=== PATIENT | male | born 1970 | race Two or more races ===

== ENCOUNTER 2021-06-05 14:00 | Outpatient (CLI) | payer BC ==
[2021-06-10] MEDS ORDERED: BUPIVACAINE 0.5 % PF 150 MG/30 ML VIAL ONE (09:03)
[2021-06-12] MEDS ORDERED: OXYC-128 PO (13:43)
== END 2021-06-05 23:59 | disposition home or self-care (01) ==
LOC: LAB 14:00
PROVIDERS: ATTEND Physician Assistant
DX: Z01.812 Encounter for preprocedural laboratory examination (principal); Z20.822 Contact with and (suspected) exposure to COVID-19
CPT/HCPCS: C9803; U0003

== ENCOUNTER 2021-06-10 05:30 | Inpatient (IN) | payer BC ==
[2021-06-10] VITALS (7 sets, daily range): BP systolic 106–128; BP diastolic 60–88
[~2021-06-10] VITALS: Ht 180.3 cm; Wt 109.3 kg
[2021-06-10] MEDS ORDERED: POLYMYXIN B SULFATE 500,000 UNITS ONE (06:39)
[2021-06-10] MEDS ORDERED: ANESTHESIA TRAY IN PYXIS 1 EA TRAY MC ONE (06:40)
[2021-06-10] MEDS ORDERED: BUPIVACAINE 0.5 % PF 150 MG/30 ML VIAL ONE (06:40)
--- NOTE | 2021-06-10 06:52 | NUR ---
RN ADMITTING NOTE PATIENT ADMITTED FOR DAY SURGERY. SX CHECKLIST AND CONSENTS SIGNED FOR RIGHT TOTAL KNEE ARTHROPLASTY. PATIENT IS ABLE TO MAKE NEEDS KNOWN, A/O X 4. AMBULATORY AND STEADY. INSERTED A LFA 20 G IV ACCESS SALINE LOCKED. BREATHING EVEN AND UNLABORED, TOLERATES RA AT 98%. ORIENTED PATIENT TO UNIT, RN, AND APPLICATION ANALYST. SAFETY MEASURES IN PLACE. WILL ENDORSE TO DAY SHIFT NURSE FOR ALEJANDRINA. PATIENT WAS TAKEN BY SX TEAM. PATIENT STABLE.
[2021-06-10] MEDS ORDERED: TRANEXAMIC ACID 3,000 MG in SODIUM CHLORIDE IRRIG SOLUTION 70 ML IR ONE (07:00)
[2021-06-10] MEDS ORDERED: HYDROMORPHONE INJ 2 MG/ML DISP.SYRIN ONE (07:19)
[2021-06-10] MEDS ORDERED: FENTANYL PF 250MCG/5ML AMPUL ONE ×2 (07:19)
[2021-06-10] MEDS ORDERED: MIDAZOLAM HCL 2 MG/2ML VIAL ONE (07:19)
[2021-06-10] MEDS ORDERED: ROCURONIUM BROMIDE 50 MG/5 ML ONE (07:20)
[2021-06-10] MEDS ORDERED: FAMOTIDINE/PF INJ 20 MG/2 ML VIAL IV ONE (07:20)
[2021-06-10] MEDS ORDERED: SEVOFLURANE 250 ML BOTTLE IH ONE (08:24)
[2021-06-10] MEDS ORDERED: COLACE 250 MG CAPSULE PO PRN (09:30)
[2021-06-10] MEDS ORDERED: SENOKOT 8.6 MG TABLET PO PRN (09:30)
[2021-06-10] MEDS ORDERED: ZOFRAN 4mg/2ML IV PRN (09:30)
[2021-06-10] MEDS ORDERED: DULCOLAX 10 MG/SUPP.RECT RC PRN (09:30)
[2021-06-10] MEDS ORDERED: AMBIEN 5 MG TABLET PO PRN (09:30)
[2021-06-10] MEDS ORDERED: TYLENOL 650 MG TABLET PO PRN (09:30)
[2021-06-10] MEDS ORDERED: ONDANSETRON HCL/PF 4 MG/2 ML VIAL IV PRN (10:00)
[2021-06-10] MEDS ORDERED: ALBUTEROL FS 2.5 MG/0.5 ML VIAL.NEB NEB PRN (10:00)
[2021-06-10] MEDS ORDERED: MAG HYDROX/AL HYDROX/SIMETH 30 ML UDC PO PRN (10:00)
[2021-06-10] MEDS ORDERED: CYCLOBENZAPRINE 10 MG TABLET PO PRN (10:00)
[2021-06-10] MEDS ORDERED: CLONIDINE HCL 0.1 MG TABLET PO PRN (10:00)
[2021-06-10] MEDS ORDERED: HYDROCODONE/APAP 5/325MG TABLET PO PRN (10:00)
[2021-06-10] MEDS ORDERED: MAGNESIUM HYDROXIDE 30 ML UDC PO PRN (10:00)
[2021-06-10] MEDS: NICOTINE PATCH (21MG) 21 MG PATCH.TD24 TD SCH ×2 (10:00→11:37)
[2021-06-10] MEDS ORDERED: MENTHOL/CETYLPYRD (CEPACOL) 1 LOZ LOZENGE PO PRN (10:00)
[2021-06-10] MEDS ORDERED: DRONABINOL (2.5 MG) 2.5 MG CAPSULE PO SCH (10:00)
[2021-06-10] MEDS ORDERED: diphenhydrAMINE HCL 25 MG CAPSULE PO PRN (10:00)
[2021-06-10] MEDS ORDERED: ONDANSETRON HCL/PF 4 MG/2 ML VIAL ONE (10:09)
--- NOTE | 2021-06-10 10:30 | NUR ---
Pateint has an order for Nicotine patch, patient prefers not to have it today, explained risks and benefits thrice, still refused.
--- NOTE | 2021-06-10 10:35 | NUR ---
Patient arrived from OR around 10:34am, S/P right total knee arthroplasty, stable condition, no apparent distress noted. Patient AO X 4, able to follow commands, can make needs known. RN and TICKET TAKER introduced to patient, oriented with use of call light, bed control, and tv control, verbalized understanding and gratitude. Patient denies any pain or discomfort at this time, safety precautions maintained, brakes locked, call light left within reach, will monitor closely for any changes.
[2021-06-10] MEDS: IV D5/0.45 NACL 1,000 ML IV PRN ×2 (11:33→21:27)
[2021-06-10] MEDS: DRONABINOL (2.5 MG) 2.5 MG CAPSULE PO SCH ×2 (11:36→21:19)
[2021-06-10] MEDS: ANCEF 1 G in IV D5W 50 ML IV SCH ×2 (15:44→23:14)
[2021-06-10] MEDS: GABAPENTIN 300 MG CAPSULE PO SCH (16:41)
[2021-06-10] MEDS: DOCUSATE SODIUM 100 MG CAPSULE PO SCH (16:41)
--- NOTE | 2021-06-10 18:46 | NUR ---
RN CLOSING NOTES Patient seen comfortably lying in bed, AOX4, respirations even and unlabored, no SOB, no apparent distress noted, denies any pain or discomfort at this time. Skin warm to touch, no pallor or cyanosis noted. Due medications given per MD order, tolerating well. All needs attended, kept clean and dry, safety measures maintained, brakes locked, side rails up X2, call light left within reach, will endorse to next shift for continuity of care.
--- NOTE | 2021-06-10 19:30 | NUR ---
Patient A&Ox4. VSS. Awake in bed using CPM on R leg, will remove before bed. S/p R total knee arthroplasty patient reports severe pain . will medicate as per order. LFA #20G IV flushed and patent. No signs of cardiac or respiratory distress. Will continue to monitor closely.
[2021-06-10] MEDS: HYDROMORPHONE 1 MG/1 ML DISP.SYRIN SQ PRN ×2 (19:41→23:53)
--- NOTE | 2021-06-10 20:00 | NUR ---
Patient has slightly elevated temp 99.9, cooling measures and second dose of ABX to be given
[2021-06-10] MEDS: PANTOPRAZOLE 40 MG TABLET.DR PO SCH (21:19)
--- NOTE | 2021-06-11 | NUR ---
ms rn note covering for kody spencer who is on break rn. patient c/o 9/10 pain in the right knee. given dilaudid 1mg prn. will reassess.
[2021-06-11] MEDS: IV D5/0.45 NACL 1,000 ML IV PRN ×2 (04:40→05:34)
[2021-06-11] MEDS: oxyCODONE IR immediate release 5 MG PO PRN ×2 (05:42→18:35)
[2021-06-11 06:17] LABS: BASOPHILS % (AUTO) 0.1 % (0.0-2.0); EOSINOPHILS % (AUTO) 0.1 % (0.0-6.0); HEMATOCRIT 36 % (39-51); HEMOGLOBIN 12.2 g/dL (13.5-17.5); LYMPHOCYTES # (AUTO) 0.7 K/uL (0.8-4.8); LYMPHOCYTES % (AUTO) 5.4 % (20.0-44.0); MEAN CORPUSCULAR HGB CONC 34 g/dl (31.0-36.0); MEAN CORPUSCULAR VOLUME 92 fL (80-96); MONOCYTES % (AUTO) 7.5 % (2.0-12.0); NEUTROPHILS # (AUTO) 12.1 K/uL (1.8-8.9); NEUTROPHILS % (AUTO) 86.9 % (43.0-81.0); PLATELET COUNT (AUTO) 164 K/uL (150-450); RED BLOOD CELL COUNT(AUTO) 3.88 MIL/uL (4.5-6.0); WHITE BLOOD COUNT (AUTO) 13.9 K/uL (4.3-11.0)
--- NOTE | 2021-06-11 06:25 | NUR ---
MS RN OPENING NOTES Patient has been A&Ox4, sleeping intermittently throughout night, easy to wake. Patient awoke in pain a few times but pain was managed with PRN pain medication. Was able to use the CPM before bed tolerated well. Patient is very motivated to get moving, get better, and go home. Uses incentive spirometer q1-2h while awake.
[2021-06-11 06:32] LABS: POTASSIUM 3.9 mmol/L (3.5-5.1)
--- NOTE | 2021-06-11 08:01 | NUR ---
MS/RN OPENING NOTES RECEIVED PATIENT IN BED, AWAKE, ALERT AND ORIENTED X3, ABLE TO MAKE NEEDS KNOWN. S/P RIGHT KNEE ARTHROPLASTY BY DR. HOWELL 06/10. CURRENTLY ON 2 LPM OF O2 VIA NASAL CANNULA. NO DISTRESS NOTED AT THIS TIME. ENCOURAGED TO USE INCENTIVE SPIROMETER. USES URINAL. IV ACCESS ON LEFT FA #20G WITH A RUNNING D5 1/2 NS @ 125CC/HR. SAFETY MEASURES IN PLACED: BED LOCKED ON LOWEST POSITION, SIDE RAILS UPX2, CALL LIGHT WITHIN EASY REACH. WILL CONTINUE TO MONITOR PATIENT.
[2021-06-11 08:14] VITALS: BP 114/67
[2021-06-11] MEDS: ASPIRIN 325 MG TABLET PO SCH (09:11)
[2021-06-11] MEDS: DOCUSATE SODIUM 100 MG CAPSULE PO SCH ×2 (09:12→18:35)
[2021-06-11] MEDS: DRONABINOL (2.5 MG) 2.5 MG CAPSULE PO SCH ×2 (09:12→21:04)
[2021-06-11] MEDS: POLYETHYLENE GLYCOL 3350 17 GM POWD.PACK PO SCH (09:12)
[2021-06-11] MEDS: NICOTINE PATCH (21MG) 21 MG PATCH.TD24 TD SCH (09:12)
[2021-06-11] MEDS: GABAPENTIN 300 MG CAPSULE PO SCH ×2 (09:12→18:34)
[2021-06-11] MEDS: HYDROMORPHONE 1 MG/1 ML DISP.SYRIN SQ PRN (09:15)
[2021-06-11 17:45] VITALS: BP 123/70
--- NOTE | 2021-06-11 19:20 | NUR ---
MS RN OPENING NOTES RECEIVED PT AWAKE IN BED, A/OX4. PT IS S/P R-KNEE ARTHROPLASTY ON 06/10/21, WITH DRESSING C/D/I. HE DENIES PAIN OR DISCOMFORT AT THIS TIME. HE STATES PAIN MEDICATION IS EFFECTIVE FOR HIM. RESP EVEN, UNLABORED, ON ROOM AIR. INSTRUCTED ON INCENTIVE SPIROMETER USE, AND HE VERBALIZED UNDERSTANDING. PT IN NO ACUTE DISTRESS. SAFETY MEASURES IN PLACE, BED IN LOWEST LOCKED POSITION, S/R UPX2, CALL LIGHT AND TABLE WITHIN EASY REACH. WILL CONTINUE TO MONITOR.
--- NOTE | 2021-06-11 19:42 | NUR ---
MS/RN CLOSING NOTES PATIENT IN BED, AWAKE, ALERT AND ORIENTED X3, ABLE TO MAKE NEEDS KNOWN. S/P RIGHT KNEE ARTHROPLASTY BY DR. HOWELL 06/10. STABLE ON ROOM AIR. NO DISTRESS NOTED AT THIS TIME. ENCOURAGED TO USE INCENTIVE SPIROMETER. USES URINAL. IV ACCESS ON LEFT FA #20G WITH A RUNNING D5 1/2 NS @ 125CC/HR. SAFETY MEASURES IN PLACED: BED LOCKED ON LOWEST POSITION, SIDE RAILS UPX2, CALL LIGHT WITHIN EASY REACH. WILL ENDORSE TO THE NEXT SHIFT FOR ALEJANDRINA.
[2021-06-11 20:00] VITALS: BP 120/74
[2021-06-11] MEDS: PANTOPRAZOLE 40 MG TABLET.DR PO SCH (21:04)
[2021-06-12] MEDS: oxyCODONE IR immediate release 5 MG PO PRN ×3 (01:49→13:37)
[2021-06-12 02:50] VITALS: BP 124/93
--- NOTE | 2021-06-12 02:50 | NUR ---
RN NOTE NOTED PT SHIVERING AND TEMP 102.5. COOLING MEASURES DONE AND GIVEN TYL 650MG PO ORDERED. V/S 124/93, HR 121, RR24, SPO2 93%. PLACED O2 @2LPM VIA NC. SPO2 WENT UP TO 98%. INFORMED DR.SAM RIDER. WILL CONT TO MONITOR CLOSELY.
[2021-06-12 03:15] VITALS: BP 126/82
--- NOTE | 2021-06-12 03:15 | NUR ---
RN NOTE PT LESS SHAKY AT THIS TIME, STATES HE FEELS A LITTLE BETTER. HR 117, RR18, SPO2 95%
[2021-06-12 03:30] VITALS: BP 127/82
--- NOTE | 2021-06-12 03:30 | NUR ---
RN NOTE PT RESTING WITH EYES CLOSED, VERBALIZES HE FEELS BETTER, NO MORE SHIVERING. TEMP 102, HR116, RR18, BP 127/82, SPO2 95%. CONT. COOLING MEASURES. PT DRINKING WATER WELL. NO ACUTE DISTRESS NOTED.
--- NOTE | 2021-06-12 05:00 | NUR ---
RN NOTE PT AWAKE, DENIES ANY PAIN NOR ANY DISTRESS, NO SHIVERING. TEMP 101.2, BP 112/60, HR108, RR18, SPO2 96%.
[2021-06-12 06:22] LABS: BASOPHILS % (AUTO) 0.1 % (0.0-2.0); EOSINOPHILS % (AUTO) 0.2 % (0.0-6.0); HEMATOCRIT 36 % (39-51); HEMOGLOBIN 12.3 g/dL (13.5-17.5); LYMPHOCYTES # (AUTO) 0.3 K/uL (0.8-4.8); MEAN CORPUSCULAR HGB CONC 35 g/dl (31.0-36.0); MEAN CORPUSCULAR VOLUME 92 fL (80-96); MONOCYTES # (AUTO) 0.3 K/uL (0.1-1.30); NEUTROPHILS # (AUTO) 6.8 K/uL (1.8-8.9); NEUTROPHILS % (AUTO) 91.7 % (43.0-81.0); PLATELET COUNT (AUTO) 122 K/uL (150-450); RED BLOOD CELL COUNT(AUTO) 3.86 MIL/uL (4.5-6.0); WHITE BLOOD COUNT (AUTO) 7.4 K/uL (4.3-11.0)
[2021-06-12 06:27] LABS: CALCIUM, SERUM 8.3 mg/dL (8.5-10.1); CREATININE 1.1 mg/dL (0.6-1.3); POTASSIUM 3.6 mmol/L (3.5-5.1)
--- NOTE | 2021-06-12 06:53 | NUR ---
RN CLOSING NOTE PT AWAKE IN BED, A/OX4, DENIES ANY PAIN OR DISCOMFORT AT THIS TIME. TEMP IS NOW 98.8; HR 96, BP 123/69, SPO2 96%. PT VOIDED PER URINAL 900CC. ALL NEEDS ATTENDED TO. PT IN NO ACUTE DISTRESS. SAFETY MEASURES MAINTAINED, BED IN LOWEST LOCKED POSITION, S/R UPX2, CALL LIGHT AND TABLE WITHIN REACH. WILL ENDORSE TO NEXT SHIFT NURSE.
--- NOTE | 2021-06-12 07:56 | NUR ---
MS/RN OPENING NOTES RECEIVED PATIENT IN BED, AWAKE, ALERT AND ORIENTED X3, ABLE TO MAKE NEEDS KNOWN. S/P RIGHT KNEE ARTHROPLASTY BY DR. HOWELL 06/10. CURRENTLY ON ROOM AIR. NO DISTRESS NOTED AT THIS TIME. ENCOURAGED TO USE INCENTIVE SPIROMETER. USES URINAL. IV ACCESS ON LEFT FA #20G WITH A RUNNING D5 1/2 NS @ 125CC/HR. SAFETY MEASURES IN PLACED: BED LOCKED ON LOWEST POSITION, SIDE RAILS UPX2, CALL LIGHT WITHIN EASY REACH. WILL CONTINUE TO MONITOR PATIENT.
[2021-06-12] MEDS: POLYETHYLENE GLYCOL 3350 17 GM POWD.PACK PO SCH (08:38)
[2021-06-12] MEDS: GABAPENTIN 300 MG CAPSULE PO SCH (08:38)
[2021-06-12] MEDS: NICOTINE PATCH (21MG) 21 MG PATCH.TD24 TD SCH (08:38)
[2021-06-12] MEDS: ASPIRIN 325 MG TABLET PO SCH (08:38)
[2021-06-12] MEDS: DOCUSATE SODIUM 100 MG CAPSULE PO SCH (08:38)
[2021-06-12] MEDS: DRONABINOL (2.5 MG) 2.5 MG CAPSULE PO SCH (09:13)
[2021-06-12] MEDS ORDERED: OXYC-128 PO (13:43)
--- NOTE | 2021-06-12 14:12 | NUR ---
MS/RNP NOTES PATIENT IS ALERT AND ORIENTED X4, ABLE TO MAKE NEEDS KNOWN. STABLE ON ROOM AIR. AMBULATORY WITH A 4WW. PATIENT IS MEDICALLY STABLE AND DR MI ORDERED TO DC HOME. DISCHARGE INSTRUCTIONS GIVEN TO THE PATIENT AND ABLE TO VERBALIZED UNDERSTANDING. IV ACCESS DISCONTINUED. ALL BELONGINGS ACCOUNTED FOR. PATIENT WAS PICKED UP BY SON WINTER VIA PRIVATE CAR.
== END 2021-06-12 13:35 | disposition home health service (06) | DRG 470 ==
LOC: DS 05:30 → MED 05:42
PROVIDERS: ADMIT Nurse Practitioner Acute Care; ATTEND Nurse Practitioner Acute Care
PROC: 0SRC0J9 Replacement of Right Knee Joint with Synthetic Substitute, Cemented, Open Approach (ICD-10-PCS; principal; 2021-06-10)
DX: M17.11 Unilateral primary osteoarthritis, right knee (principal); K21.9 Gastro-esophageal reflux disease without esophagitis; E66.9 Obesity, unspecified; K59.00 Constipation, unspecified; Z79.82 Long term (current) use of aspirin; D72.829 Elevated white blood cell count, unspecified; Z71.6 Tobacco abuse counseling; F17.210 Nicotine dependence, cigarettes, uncomplicated; Z68.33 Body mass index [BMI] 33.0-33.9, adult; Z71.3 Dietary counseling and surveillance
CPT/HCPCS: 36415; 80048-TC; 80061-TC; 85025-TC; 87081-TC; 88305-TC; 88311-TC; 97110-TC; 97112-TC; 97116-TC; 97530-TC; 97760-TC; A4217; C1713; C1776; G0378; J0690; J1170; J1885; J2250; J2405; J2704; J2765; J3010; J3490; J7030; J7060; L1830; Q0167